=== PATIENT | male | born 1965 | race Caucasian/White ===

== ENCOUNTER 2019-04-22 17:08 | Emergency (ER) | payer BC ==
--- NOTE | 2019-04-22 17:39 | ED ---
GI/ HPI - HPI Summary HPI Summary: Patient states history of blood in urine with significant size blood clots 2 days. History of BPH. States history of similar symptoms 1 week ago which self resolved after 2 days. Mild pain with urination. Denies trauma, fever, cough, sore throat, CP, SOB, N/V/V abdominal pain, change in urine, change in BM. Medical history is hypothyroid, Lyme disease. Patient does not have a urologist. Per patient's friend, patient drinks 30 beers a day for years. - History of Current Complaint Chief Complaint: EDUrogenitalProblems Time Seen by Provider: 04/22/19 17:33 Stated Complaint: URINATING BLOOD PER PT Hx Obtained From: Patient, Family/Narrow Gauge Operator Onset/Duration: Started Days Ago Timing: Constant Current Severity: None Pain Intensity: 0 Associated Signs and Symptoms: Positive: Hematuria Aggravating Factor(s): Nothing Alleviating Factor(s): Nothing - Allergy/Home Medications Allergies/Adverse Reactions: Allergies Allergy/AdvReac Type Severity Reaction Status Date / Time No Known Allergies Allergy Verified 04/22/19 17:28 Home Medications: Home Medications Gabapentin CAP(*) [Neurontin 100 mg CAP(*)] 1 - 3 tab PO TID PRN 04/22/19 [ History Confirmed 04/22/19] Lovastatin 20 mg PO BEDTIME 04/22/19 [History Confirmed 04/22/19] PMH/Surg Hx/FS Hx/Imm Hx Endocrine/Hematology History: Reports: Hx Thyroid Disease Denies: Hx Diabetes Cardiovascular History: Denies: Hx Hypertension Respiratory History: Denies: Hx Asthma, Hx Chronic Obstructive Pulmonary Disease (COPD) GI History: Denies: Hx Ulcer History: Denies: Hx Dialysis Sensory History: Denies: Hx Eye Prosthesis Opthamlomology History: Denies: Hx Legally Blind EENT History: Denies: Hx Deafness Neurological History: Denies: Hx Dementia - Surgical History Surgery Procedure, Year, and Place: EYE SURGERIES- REATTACHED MUSCLES Infectious Disease History: No Infectious Disease History: Denies: Hx Hepatitis, Hx Human Immunodeficiency Virus (HIV), History Other Infectious Disease, Traveled Outside the [place] in Last 30 Days - Family History Known Family History: Positive: Non-Contributory - Social History Alcohol Use: Daily Substance Use Type: Reports: None Smoking Status (MU): Heavy Every Day Tobacco Smoker Type: Cigarettes Amount Used/How Often: 3/4 ppd Review of Systems Constitutional: Negative Eyes: Negative ENT: Negative Cardiovascular: Negative Respiratory: Negative Gastrointestinal: Negative Positive: hematuria Musculoskeletal: Negative Skin: Negative Neurological: Negative Psychological: Normal All Other Systems Reviewed And Are Negative: Yes Physical Exam Triage Information Reviewed: Yes Vital Signs On Initial Exam: Initial Vitals Temp Pulse Resp BP Pulse Ox 99.4 F 90 18 138/94 98 04/22/19 17:22 04/22/19 17:22 04/22/19 17:22 04/22/19 17:22 04/22/19 17:22 Vital Signs Reviewed: Yes Appearance: Positive: Well-Appearing Skin: Positive: Warm Head/Face: Positive: Normal Head/Face Inspection Eyes: Positive: Normal Neck: Positive: Supple Respiratory/Lung Sounds: Positive: Clear to Auscultation Cardiovascular: Positive: Normal Abdomen Description: Positive: Nontender Musculoskeletal: Positive: Normal Neurological: Positive: Normal Psychiatric: Positive: Normal AVPU Assessment: Alert - [place] Coma Scale Best Eye Response: 4 - Spontaneous Best Motor Response: 6 - Obeys Commands Best Verbal Response: 5 - Oriented Coma Scale Total: 15 Procedures - Sedation Patient Received Moderate/Deep Sedation with Procedure: No Diagnostics - Vital Signs Vital Signs Temp Pulse Resp BP Pulse Ox 04/22/19 17:22 99.4 F 90 18 138/94 98 - Laboratory Result Diagrams: 04/22/19 17:46 04/22/19 17:46 Lab Statement: Any lab studies that have been ordered have been reviewed, and results considered in the medical decision making process. GIGU Course/Dx - Course Course Of Treatment: Patient states history of blood in urine with significant size blood clots 2 days. History of BPH. States history of similar symptoms 1 week ago which self resolved after 2 days. Mild pain with urination. Denies trauma, fever, cough, sore throat, CP, SOB, N/V/V abdominal pain, change in urine, change in BM. Medical history is hypothyroid, Lyme disease. Patient does not have a urologist. Per patient's friend, patient drinks 30 beers a day for years. WBC 11.6. Hemoglobin 13. UA RBCs 3+. Urine looks like grape juice. Patient brought in large size clots that he passed while urinating. Vital signs within normal limits. WBC 11.6. Hemoglobin 13. Urine RBC 3+. Labs otherwise unremarkable. CAT scan of abdomen and pelvis with IV contrast only positive for large amount of intermediate attenuation blood in the urinary bladder. This could obscure bladder mass currently. There is abnormal wall thickening with some areas of apparent enhancing nodularity of the proximal left ureter and moderate infiltration in the surrounding fat, which appears to be the source of the blood. Parents is suspicious for transitional cell carcinoma. Mild left hydronephrosis. 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 No occlusion. No other acute disease seen. Patient able to urinate. Attempted to irrigate bladder with a catheter. Catheter was not able to be advanced past enlarged prostate. 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 Discussed patient with urologist at [facility] who stated patient could be discharged and follow-up with urology tomorrow. - Diagnoses Provider Diagnoses: Hematuria Discharge ED - Sign-Out/Discharge Documenting (check all that apply): Patient Departure - Discharge Plan Condition: Stable Disposition: HOME Patient Education Materials: Hematuria (ED) Referrals: Keshia Valero MD [Primary Care Provider] - Jorge Malik MD [Medical Doctor] - Additional Instructions: Called clinic of urology Dr. Malik early tomorrow morning to arrange a follow- up appointment for bleeding while urinating. Return to the ED for any new or worsening symptoms. - Billing Disposition and Condition Condition: STABLE Disposition: Home - Attestation Statements Provider Attestation: I agree w MATEO documentation as above, briefly this is a 53 y/o male w new onset hematuria. No e/o obstruction. CT concerning for bladder/ureteral cancer. Unable to place moss for irrigation. Will f/u w urology. Maura Redman MD
[2019-04-22 17:52] LABS: ABS Basophils 0.1 10^3/ul (0-0.2); ABS Eosinophils 0.2 10^3/ul (0-0.6); ABS Lymphocytes 2.4 10^3/ul (1.0-4.8); ABS Monocytes 0.7 10^3/ul (0-0.8); ABS Neutrophils 8.1 10^3/ul (1.5-7.7); Hematocrit 36 % (42-52); Lymphocyte % 20.9 %; Mean Corpuscular HGB Conc 36 g/dL (31-36); Mean Corpuscular Hemoglobin 34 pg (27-31); Mean Corpuscular Volume 94 fL (80-94); Mean Platelet Volume 8.5 fL (7.4-10.4); Platelet Count 253 10^3/uL (150-450); Red Blood Count 3.87 10^6 /uL (4.18-5.48); Red Cell Distribution Width 13 % (10-15); White Blood Count 11.6 10^3/uL (3.5-10.8)
[2019-04-22 18:04] LABS: INR 0.99 (0.82-1.09)
[2019-04-22 18:10] LABS: Albumin 4.2 g/dL (3.2-5.2); Albumin/Globulin Ratio 1.6 (1-3); BUN/Creatinine Ratio 13.5 (8-20); C Reactive Protein 3.73 mg/L (<8.01); Calcium 9.1 mg/dL (8.6-10.3); EGFR African American 133.4 (>60); EGFR Non-African American 110.2 (>60); Globulin 2.7 g/dL (2-4); Potassium 3.7 mmol/L (3.5-5.0); Total Bilirubin 0.4 mg/dL (0.2-1.0); Total Protein 6.9 g/dL (6.4-8.9)
[2019-04-22 18:25] LABS: Urine Red Blood Cell 3+(>10/hpf) (Absent); Urine Squamous Epithelial Cell Present (Absent); Urine White Blood Cell Trace(0-5/hpf) (Absent)
[2019-04-22 18:26] LABS: Urine Color Red
[2019-04-22 18:28] LABS: Urine Appearance Cloudy
[2019-04-22] MEDS ORDERED: Iohexol 300* (CONTRAST) 10 ML SDV IV ONE (19:19)
[2019-04-22] MEDS ORDERED: Lidocaine 2% JELLY* 10 ML JELLY TOPICAL ONE (21:02)
[2019-04-22 23:03] VITALS: BP 128/96
== END 2019-04-22 22:55 | disposition home or self-care (01) ==
LOC: ED 17:08
DX: R31.9 Hematuria, unspecified (principal); F17.210 Nicotine dependence, cigarettes, uncomplicated; E03.9 Hypothyroidism, unspecified; Z79.899 Other long term (current) drug therapy
CPT/HCPCS: 36415; 74177; 80053; 81003; 85025; 85610; 86140; 87086; 99283; A9270-GY; Q9967

== ENCOUNTER 2020-07-10 16:20 | Inpatient (IN) ==
[2020-07-10] MEDS ORDERED: Heparin - STEMI 5,000 UNITS/ML 1 ml VIAL IV ONE (16:33)
[2020-07-10] MEDS ORDERED: Heparin 1,000 UNIT/ML 10 ml (10,000 UNITS) CATHLAB/DIALYSIS ONE (16:38)
[2020-07-10] MEDS ORDERED: VERAPAMIL 2.5 MG/ML 2 ML VIAL ** 5 mg/2 ml ONE (16:38)
[2020-07-10] MEDS ORDERED: Lidocaine 1% VIAL 10 MG/ML VIAL ONE (16:38)
[2020-07-10] MEDS ORDERED: nitroGLYCERIN DRIP 25,000 MCG/250 ML BTL ONE (16:38)
[2020-07-10] MEDS ORDERED: Heparin 2 UNITS/ML 1000 mls 2,000 ML IV ONE (16:38)
[2020-07-10] MEDS ORDERED: Iohexol 350 (CONTRAST) 200 ML MDV IV ONE (16:39)
[2020-07-10 16:40] LABS: ABS Basophils 0.1 10^3/ul (0-0.2); ABS Lymphocytes 1.7 10^3/ul (1.0-4.8); ABS Monocytes 0.8 10^3/ul (0-0.8); ABS Neutrophils 13.8 10^3/ul (1.5-7.7); Eosinophil % 0.2 %; Hematocrit 40 % (42-52); Hemoglobin 13.6 g/dL (14.0-18.0); Lymphocyte % 10.3 %; Mean Corpuscular HGB Conc 34 g/dL (31-36); Mean Corpuscular Hemoglobin 31 pg (27-31); Mean Corpuscular Volume 90 fL (80-94); Mean Platelet Volume 8.7 fL (7.4-10.4); Platelet Count 317 10^3/uL (150-450); Red Blood Count 4.42 10^6 /uL (4.18-5.48); Red Cell Distribution Width 14 % (10-15); White Blood Count 16.3 10^3/uL (3.5-10.8)
[2020-07-10 16:58] LABS: ALT 41 U/L (7-52); AST 40 U/L (13-39); Albumin 3.8 g/dL (3.2-5.2); Albumin/Globulin Ratio 1.4 (1-3); Alkaline Phosphatase 105 U/L (34-104); Anion Gap 12 mmol/L (2-11); BUN/Creatinine Ratio 6.8 (8-20); Blood Urea Nitrogen 5 mg/dL (6-24); CO2 Carbon Dioxide 20 mmol/L (22-32); Calcium 8.5 mg/dL (8.6-10.3); Chloride 98 mmol/L (101-111); Creatine Kinase 167 U/L (10-223); EGFR Non-African American 111.6 (>60); Globulin 2.8 g/dL (2-4); Glucose 119 mg/dL (70-100); LDL Cholesterol Direct 91 mg/dL; Potassium 3.8 mmol/L (3.5-5.0); Sodium 130 mmol/L (135-145); Total Protein 6.6 g/dL (6.4-8.9)
[2020-07-10 16:59] LABS: Activated Partial Thrombo Time 29.3 seconds (26.0-38.0); INR 1.03 (0.82-1.09)
[2020-07-10] MEDS ORDERED: Metoprolol Tartrate 5 mg VIAL 5 ml VIAL (1 mg/ml) ONE (17:01)
[2020-07-10] MEDS ORDERED: Metoprolol Tartrate 5 mg VIAL 5 ml VIAL (1 mg/ml) IV ONE (17:02)
[2020-07-10 17:03] LABS: Myoglobin 311.9 ng/mL (17.4-105.7)
[2020-07-10 17:04] LABS: CKMB ng/mL 13.8 ng/mL (0.6-6.3)
[2020-07-10 17:06] LABS: Troponin I 0.41 ng/mL (<0.03)
[2020-07-10] MEDS ORDERED: fentaNYL 100 mcg/2 ml 50 MCG/ML VIAL ONE (17:39)
[2020-07-10] MEDS ORDERED: Midazolam 5 mg/5 ml VIAL 1 mg/ml 5 ml VIAL (5 mg) ONE (17:39)
[2020-07-10] MEDS ORDERED: Bivalirudin 250 MG VIAL ONE (17:50)
[2020-07-10] MEDS ORDERED: Ondansetron 4 mg VIAL 2 MG/ML 2 ml VIAL IV PRN (19:08)
[2020-07-10] MEDS ORDERED: hydrALAZINE 20 mg/ml 1 ML Vial IV IV SLOW PU ONE (19:10)
[2020-07-10] MEDS ORDERED: Furosemide 20 mg/2 ml IV VIAL IV ONE (19:14)
[2020-07-10] MEDS ORDERED: hydrALAZINE 20 mg/ml 1 ML Vial IV ONE (19:14)
[2020-07-10] MEDS ORDERED: NS 0.9% 1000 ml BAG 1,000 ML IV SCH (19:15)
[2020-07-10] MEDS ORDERED: Metoprolol Tartrate 5 mg VIAL 5 ml VIAL (1 mg/ml) IV PRN (19:28)
[2020-07-10] MEDS ORDERED: Furosemide 20 mg/2 ml IV VIAL ONE (19:49)
[2020-07-10 20:34] LABS: Troponin I 13.32 ng/mL (<0.03)
[2020-07-11 01:45] LABS: Troponin I 46.63 ng/mL (<0.03)
[2020-07-11 05:10] LABS: ABS Basophils 0.1 10^3/ul (0-0.2); ABS Eosinophils 0.1 10^3/ul (0-0.6); ABS Monocytes 1.3 10^3/ul (0-0.8); ABS Neutrophils 13.8 10^3/ul (1.5-7.7); Eosinophil % 0.6 %; Hematocrit 38 % (42-52); Lymphocyte % 11.7 %; Mean Corpuscular HGB Conc 34 g/dL (31-36); Mean Corpuscular Hemoglobin 31 pg (27-31); Mean Corpuscular Volume 89 fL (80-94); Mean Platelet Volume 8.9 fL (7.4-10.4); Platelet Count 303 10^3/uL (150-450); Red Blood Count 4.27 10^6 /uL (4.18-5.48); Red Cell Distribution Width 14 % (10-15); White Blood Count 17.3 10^3/uL (3.5-10.8)
[2020-07-11 05:16] LABS: Anion Gap 9 mmol/L (2-11); BUN/Creatinine Ratio 9.4 (8-20); Blood Urea Nitrogen 6 mg/dL (6-24); CO2 Carbon Dioxide 23 mmol/L (22-32); Calcium 8.8 mg/dL (8.6-10.3); Chloride 100 mmol/L (101-111); Cholesterol 136 mg/dL; EGFR African American 157.1 (>60); EGFR Non-African American 129.8 (>60); Glucose 124 mg/dL (70-100); HDL Cholesterol 29.4 mg/dL; LDL Cholesterol 50 mg/dL; Potassium 3.6 mmol/L (3.5-5.0); Sodium 132 mmol/L (135-145); Triglycerides 282 mg/dL
[2020-07-11] MEDS ORDERED: Potassium Chlor 20 meq TAB.ER PO ONE ×2 (07:07→08:35)
[2020-07-11 07:35] LABS: Magnesium 1.9 mg/dL (1.9-2.7)
[2020-07-11 07:40] LABS: Troponin I 45.61 ng/mL (<0.03)
[2020-07-11] MEDS ORDERED: Pneumococcal Vac 23-Polyvalent IM ONE (09:00)
[2020-07-12 06:57] LABS: ABS Basophils 0.1 10^3/ul (0-0.2); ABS Eosinophils 0.2 10^3/ul (0-0.6); ABS Lymphocytes 2.4 10^3/ul (1.0-4.8); ABS Monocytes 1.1 10^3/ul (0-0.8); ABS Neutrophils 10.2 10^3/ul (1.5-7.7); Eosinophil % 1.6 %; Hematocrit 36 % (42-52); Hemoglobin 12.2 g/dL (14.0-18.0); Lymphocyte % 17.1 %; Mean Corpuscular HGB Conc 34 g/dL (31-36); Mean Corpuscular Hemoglobin 31 pg (27-31); Mean Corpuscular Volume 91 fL (80-94); Mean Platelet Volume 9.4 fL (7.4-10.4); Platelet Count 246 10^3/uL (150-450); Red Blood Count 3.94 10^6 /uL (4.18-5.48); Red Cell Distribution Width 14 % (10-15); White Blood Count 13.9 10^3/uL (3.5-10.8)
[2020-07-12 07:16] LABS: BUN/Creatinine Ratio 10.4 (8-20); Calcium 8.6 mg/dL (8.6-10.3); EGFR Non-African American 123.2 (>60); Magnesium 2.1 mg/dL (1.9-2.7)
[2020-07-12] MEDS ORDERED: Thiamine 100 MG/ML 2 ml VIAL (200 mg) IM ONE (07:38)
[2020-07-12] MEDS ORDERED: Multivitamins/Minerals TAB PO SCH (09:00)
[2020-07-12] MEDS ORDERED: Perflutren Lipid Microsphere 3 ML VIAL ONE (11:53)
[2020-07-12 14:07] LABS: TSH Ultra Thyroid Stim Horm 9.47 mcIU/mL (0.34-5.60)
[2020-07-12] MEDS ORDERED: Nicotine GUM 4MG FRUIT FLAVOR PO PRN (14:18)
[2020-07-12 15:58] VITALS: BP 120/92
[2020-07-12] MEDS ORDERED: Enoxaparin 100 MG/ML SYR SUBCUT ONE (16:20)
== END 2020-07-12 17:15 | disposition home or self-care (01) | DRG 174 ==
LOC: ED 16:20 → CHICATH 16:41 → ICU 19:31 → MEDTELE 07-11 17:54
PROVIDERS: ATTEND Internal Medicine

== ENCOUNTER 2020-11-09 21:09 | Inpatient (IN) ==
[2020-11-09 22:25] LABS: Hematocrit 22 % (42-52); Hemoglobin 7.5 g/dL (14.0-18.0); Mean Corpuscular HGB Conc 34 g/dL (31-36); Mean Corpuscular Hemoglobin 31 pg (27-31); Mean Corpuscular Volume 90 fL (80-94); Mean Platelet Volume 7.8 fL (7.4-10.4); Platelet Count 354 10^3/uL (150-450); Red Blood Count 2.45 10^6 /uL (4.18-5.48); Red Cell Distribution Width 34 % (10-15); White Blood Count 8.2 10^3/uL (3.5-10.8)
[2020-11-09 22:35] LABS: INR 1.01 (0.86-1.15)
[2020-11-09 22:42] LABS: ALT 13 U/L (7-52); AST 17 U/L (13-39); Albumin 3.8 g/dL (3.2-5.2); Albumin/Globulin Ratio 1.6 (1-3); Alkaline Phosphatase 59 U/L (35-149); Anion Gap 11 mmol/L (2-11); Blood Urea Nitrogen 18 mg/dL (6-24); C Reactive Protein 8.43 mg/L (<8.01); CO2 Carbon Dioxide 20 mmol/L (22-32); Calcium 7.6 mg/dL (8.6-10.3); Chloride 98 mmol/L (101-111); EGFR African American 61.1 (>60); EGFR Non-African American 50.5 (>60); Globulin 2.4 g/dL (2-4); Glucose 124 mg/dL (70-100); Potassium 4.1 mmol/L (3.5-5.0); Sodium 129 mmol/L (135-145); Total Protein 6.2 g/dL (6.4-8.9)
[2020-11-09 22:46] LABS: Troponin I 0.03 ng/mL (<0.03)
[2020-11-09 22:47] LABS: Anisocytosis 3+; CKMB ng/mL 1.9 ng/mL (0.6-6.3)
[2020-11-09 22:48] LABS: Basophilic Stippling 1+; Polychromasia 1+
[2020-11-09 22:49] LABS: Macrocytosis 2+; Microcytosis 1+
[2020-11-09 22:50] LABS: ABS Lymphocytes 0.2 10^3/ul (1.0-4.8); ABS Monocytes 0.2 10^3/ul (0-0.8); ABS Neutrophils 7.8 10^3/ul (1.5-7.7); Eosinophil % 0.1 %
[2020-11-09] MEDS ORDERED: cefTRIAXone 1 gm/50 mL NS BAG 1 GM/50 ML BAG IV ONE (23:16)
[2020-11-09] MEDS ORDERED: Furosemide 20 mg/2 ml IV VIAL IV SLOW PU ONE (23:18)
[2020-11-09 23:57] LABS: Urine Appearance Cloudy; Urine Bilirubin Negative (Negative); Urine Blood 2+ (Negative); Urine Color Yellow; Urine Glucose Negative (Negative); Urine Ketones Negative (Negative); Urine Nitrite Negative (Negative); Urine Protein 1+(30 mg/dL) (Negative); Urine Specific Gravity 1.014 (1.002-1.030); Urine Urobilinogen Negative (Negative)
[2020-11-10 00:08] LABS: Urine Bacteria Absent (Absent); Urine Granular Casts Present (Absent); Urine Red Blood Cell 3+(>10/hpf) (Absent); Urine White Blood Cell 1+(6-10/hpf) (Absent)
[2020-11-10 00:08] LABS: PCO2 Arterial 38 mmHg (35-45)
[2020-11-10 00:11] LABS: PO2 Arterial 43 mmHg (80-100)
[2020-11-10] MEDS ORDERED: Azithromycin 500 mg/250 ml NS 500 MG/250 ML BAG IVPB ONE (00:15)
[2020-11-10] MEDS ORDERED: Succinylcholine 200 mg VIAL 20 mg/ml 10 ml VIAL (200 mg) ONE (00:32)
[2020-11-10] MEDS ORDERED: Rocuronium 50 mg VIAL 10 mg/ml 5 ml VIAL (50 mg) ONE (00:32)
[2020-11-10] MEDS ORDERED: Etomidate 40 mg/20 ml (2 MG/ML) 20 ml VIAL (40 mg) ONE (00:41)
[2020-11-10] MEDS ORDERED: Propofol 10 mg/ml 100 ML BTL 100 ML ONE (00:45)
[2020-11-10] MEDS ORDERED: Albuterol/Ipratropium NEB.SOL (2.5/0.5 MG) 3 ML NEB.SOLN ONE (00:51)
[2020-11-10] MEDS ORDERED: Albuterol/Ipratropium NEB.SOL (2.5/0.5 MG) 3 ML NEB.SOLN INH PRN (01:10)
[2020-11-10] MEDS ORDERED: Piperacillin/Tazobac ADVAN 3.375 GM in NS 0.9% 100 ml BAG 100 ML IV ONE (01:15)
[2020-11-10 01:50] LABS: Hematocrit 25 % (42-52); Hemoglobin 8.4 g/dL (14.0-18.0); Mean Corpuscular HGB Conc 33 g/dL (31-36); Mean Corpuscular Hemoglobin 31 pg (27-31); Mean Corpuscular Volume 93 fL (80-94); Platelet Count 411 10^3/uL (150-450); Red Cell Distribution Width 35 % (10-15); White Blood Count 10.8 10^3/uL (3.5-10.8)
[2020-11-10] MEDS ORDERED: Iodixanol (CONTRAST) 320 MG/ML 100 ML SDV IV ONE (01:53)
[2020-11-10 01:54] LABS: ABS Lymphocytes 0.3 10^3/ul (1.0-4.8); ABS Monocytes 0.2 10^3/ul (0-0.8); ABS Neutrophils 10.2 10^3/ul (1.5-7.7); Eosinophil % 0.1 %
[2020-11-10] MEDS ORDERED: Propofol 10 mg/ml 100 ML BTL 100 ML IV SCH ×3 (02:00→03:41)
[2020-11-10] MEDS ORDERED: Zosyn per Pharmacy NOTE FOLLOW UP SCH (02:00)
[2020-11-10] MEDS ORDERED: niCARdipine 0.1MG/ML IVPREMIX 20 MG/200 ML BAG IV SCH (02:00)
[2020-11-10 02:05] LABS: Albumin 3.8 g/dL (3.2-5.2); Anion Gap 13 mmol/L (2-11); CO2 Carbon Dioxide 16 mmol/L (22-32); Calcium 7.4 mg/dL (8.6-10.3); Chloride 99 mmol/L (101-111); Magnesium 1.8 mg/dL (1.9-2.7); Potassium 4.4 mmol/L (3.5-5.0); Sodium 128 mmol/L (135-145)
[2020-11-10 02:11] LABS: ALT 13 U/L (7-52); AST 20 U/L (13-39); Albumin/Globulin Ratio 1.5 (1-3); Alkaline Phosphatase 65 U/L (35-149); Blood Urea Nitrogen 21 mg/dL (6-24); EGFR African American 59.7 (>60); EGFR Non-African American 49.3 (>60); Globulin 2.6 g/dL (2-4); Glucose 191 mg/dL (70-100); Phosphorus 6.3 mg/dL (2.5-5.0); Total Protein 6.4 g/dL (6.4-8.9)
[2020-11-10] MEDS ORDERED: Magnesium Sulfate 2 gm BAG 2 GM/50 ML BAG IVPB ONE (02:14)
[2020-11-10 02:18] LABS: Troponin I 0.04 ng/mL (<0.03)
[2020-11-10 02:46] LABS: PCO2 Arterial 30 mmHg (35-45); PO2 Arterial 302 mmHg (80-100)
[2020-11-10] MEDS ORDERED: fentaNYL 100 mcg/2 ml 50 MCG/ML VIAL IV SLOW PU PRN ×2 (03:36→05:43)
[2020-11-10 03:39] LABS: TSH Ultra Thyroid Stim Horm 7.41 mcIU/mL (0.34-5.60)
[2020-11-10] MEDS: Linezolid 600 MG IVPREMIX(*) 600 MG/300 ML BAG IVPB SCH ×2 (04:58→15:36)
[2020-11-10] MEDS: Chlorhexidine MOUTHWASH 0.12% 15 ML UDC TOPICAL SCH ×3 (05:27→12:38)
[2020-11-10 05:54] LABS: Hematocrit 23 % (42-52); Hemoglobin 7.5 g/dL (14.0-18.0); Mean Corpuscular HGB Conc 33 g/dL (31-36); Mean Corpuscular Hemoglobin 31 pg (27-31); Mean Corpuscular Volume 92 fL (80-94); Mean Platelet Volume 7.7 fL (7.4-10.4); Platelet Count 322 10^3/uL (150-450); Red Blood Count 2.46 10^6 /uL (4.18-5.48); Red Cell Distribution Width 35 % (10-15); White Blood Count 8.9 10^3/uL (3.5-10.8)
[2020-11-10 05:59] LABS: ABS Basophils 0.1 10^3/ul (0-0.2); ABS Lymphocytes 0.2 10^3/ul (1.0-4.8); ABS Monocytes 0.3 10^3/ul (0-0.8); ABS Neutrophils 8.4 10^3/ul (1.5-7.7); Lymphocyte % 1.7 %
[2020-11-10 06:26] LABS: Anion Gap 9 mmol/L (2-11); Blood Urea Nitrogen 23 mg/dL (6-24); CO2 Carbon Dioxide 20 mmol/L (22-32); Calcium 7.3 mg/dL (8.6-10.3); Chloride 98 mmol/L (101-111); EGFR African American 56.2 (>60); EGFR Non-African American 46.4 (>60); Glucose 159 mg/dL (70-100); Potassium 4.6 mmol/L (3.5-5.0); Sodium 127 mmol/L (135-145)
[2020-11-10 06:31] LABS: PCO2 Arterial 29 mmHg (35-45); PO2 Arterial 97 mmHg (80-100)
[2020-11-10 06:59] LABS: Troponin I 0.09 ng/mL (<0.03)
[2020-11-10] MEDS: Heparin 5000 UNITS/ML 1 mL VIAL SUBCUT SCH ×2 (09:00→20:45)
[2020-11-10] MEDS: Multivitamins/Minerals TAB PO SCH (09:00)
[2020-11-10] MEDS: ZOSYN 3.375 GM Q8H per EXTENDED INFUSION IV SCH ×3 (09:00→23:14)
[2020-11-10] MEDS: Pantoprazole VIAL 40 MG VIAL IV SCH (09:00)
[2020-11-10] MEDS ORDERED: Perflutren Lipid Microsphere 3 ML VIAL ONE (09:26)
[2020-11-10 11:11] LABS: Troponin I 0.11 ng/mL (<0.03)
[2020-11-10] MEDS ORDERED: Furosemide 100 mg/10 ml IV VIAL IV ONE (16:01)
[2020-11-10 16:50] LABS: Hematocrit 22 % (42-52); Hemoglobin 7.3 g/dL (14.0-18.0); Mean Corpuscular HGB Conc 32 g/dL (31-36); Mean Corpuscular Hemoglobin 30 pg (27-31); Mean Corpuscular Volume 92 fL (80-94); Mean Platelet Volume 7.8 fL (7.4-10.4); Platelet Count 314 10^3/uL (150-450); Red Blood Count 2.44 10^6 /uL (4.18-5.48); Red Cell Distribution Width 34 % (10-15); White Blood Count 6.9 10^3/uL (3.5-10.8)
[2020-11-11] MEDS: Linezolid 600 MG IVPREMIX(*) 600 MG/300 ML BAG IVPB SCH (02:58)
[2020-11-11 04:21] LABS: Hematocrit 21 % (42-52); Hemoglobin 6.9 g/dL (14.0-18.0); Mean Corpuscular HGB Conc 34 g/dL (31-36); Mean Corpuscular Hemoglobin 30 pg (27-31); Mean Corpuscular Volume 90 fL (80-94); Mean Platelet Volume 7.6 fL (7.4-10.4); Platelet Count 328 10^3/uL (150-450); Red Blood Count 2.28 10^6 /uL (4.18-5.48); Red Cell Distribution Width 34 % (10-15); White Blood Count 6.3 10^3/uL (3.5-10.8)
[2020-11-11 04:36] LABS: Calcium 7.4 mg/dL (8.6-10.3); EGFR African American 56.6 (>60); EGFR Non-African American 46.8 (>60); Magnesium 2.1 mg/dL (1.9-2.7); Phosphorus 4.2 mg/dL (2.5-5.0); Potassium 3.9 mmol/L (3.5-5.0)
[2020-11-11] MEDS ORDERED: Potassium Chlor 20 meq TAB.ER PO ONE (04:39)
[2020-11-11] MEDS: ZOSYN 3.375 GM Q8H per EXTENDED INFUSION IV SCH (07:28)
[2020-11-11] MEDS: Pantoprazole VIAL 40 MG VIAL IV SCH (08:52)
[2020-11-11] MEDS: Heparin 5000 UNITS/ML 1 mL VIAL SUBCUT SCH ×2 (08:53→21:18)
[2020-11-11] MEDS: Multivitamins/Minerals TAB PO SCH (08:53)
[2020-11-11] MEDS ORDERED: Furosemide 40 mg/4 ml IV VIAL IV ONE (08:54)
[2020-11-11] MEDS: Amoxicillin/Clavul 875/125 TAB (Augmentin 875 tab) PO SCH ×2 (10:19→21:33)
[2020-11-11 10:46] LABS: HDL Cholesterol 33.3 mg/dL
[2020-11-12 09:31] LABS: Hematocrit 27 % (42-52); Hemoglobin 9.4 g/dL (14.0-18.0); Mean Corpuscular HGB Conc 34 g/dL (31-36); Mean Corpuscular Hemoglobin 31 pg (27-31); Mean Corpuscular Volume 90 fL (80-94); Mean Platelet Volume 7.8 fL (7.4-10.4); Platelet Count 385 10^3/uL (150-450); Red Blood Count 3.03 10^6 /uL (4.18-5.48); Red Cell Distribution Width 31 % (10-15)
[2020-11-12] MEDS: Heparin 5000 UNITS/ML 1 mL VIAL SUBCUT SCH (09:32)
[2020-11-12] MEDS: Pantoprazole VIAL 40 MG VIAL IV SCH (09:32)
[2020-11-12] MEDS: Amoxicillin/Clavul 875/125 TAB (Augmentin 875 tab) PO SCH (09:32)
[2020-11-12] MEDS: Multivitamins/Minerals TAB PO SCH (09:32)
[2020-11-12 09:52] LABS: Albumin 3.8 g/dL (3.2-5.2); Albumin/Globulin Ratio 1.3 (1-3); Calcium 8.7 mg/dL (8.6-10.3); EGFR African American 64.7 (>60); EGFR Non-African American 53.5 (>60); Globulin 2.9 g/dL (2-4); Magnesium 1.7 mg/dL (1.9-2.7); Phosphorus 3.1 mg/dL (2.5-5.0); Potassium 4.1 mmol/L (3.5-5.0); Total Bilirubin 0.5 mg/dL (0.2-1.0); Total Protein 6.7 g/dL (6.4-8.9)
[2020-11-12 11:01] LABS: ABS Eosinophils 0.1 10^3/ul (0-0.6); ABS Lymphocytes 0.6 10^3/ul (1.0-4.8); ABS Neutrophils 4.2 10^3/ul (1.5-7.7); Eosinophil % 2.8 %; Lymphocyte % 11.4 %
[2020-11-12] MEDS ORDERED: COVID-19 VACCINE, MRNA(MODERNA)/PF 100 MCG/0.5 ML IM ONE (16:00)
[2020-11-12 18:15] VITALS: BP 118/60
== END 2020-11-12 18:50 | disposition home or self-care (01) | DRG 133 ==
LOC: ED 21:09 → ICU 11-10 01:07 → SUATTDRO 11-10 01:07 → ICU 11-10 02:36 → MEDTELE 11-11 16:09
PROVIDERS: ADMIT Student in an Organized Health Care Education/Training Program; ATTEND Internal Medicine

== ENCOUNTER 2023-11-09 15:12 | Inpatient (IN) ==
[2023-11-09 15:50] LABS: ABS Basophils 0.2 10^3/uL (0.0-0.1); ABS Eosinophils 0.1 10^3/uL (0.0-0.5); ABS Lymphocytes 0.7 10^3/uL (1.0-4.8); ABS Neutrophils 12.6 10^3/uL (1.5-7.6); ABS Nucleated RBC 0.01 10^3/ul; Eosinophil % 0.9 %; Hematocrit 16.5 % (38-53); Hemoglobin 5.4 g/dL (13.2-16.3); Lymphocyte % 4.6 %; Mean Corpuscular Hemoglobin 24.5 pg (27-33); Mean Corpuscular Hgb Conc 32.8 g/dL (31-36); Mean Corpuscular Volume 74.5 fL (80-97); Mean Platelet Volume 7.4 fL (7.5-11.2); Nucleated Red Blood Cells % 0.1 %/100WBC (0.0-0.8); Platelet Count 745 10^3/uL (150-450); Red Blood Count 2.21 10^6/uL (4.06-5.63); Red Cell Distribution Width 17.5 % (12-17); White Blood Count 14.6 10^3/uL (3.6-10.2)
[2023-11-09 16:03] LABS: High Sens Troponin Baseline 18 pg/mL (<20)
[2023-11-09 16:20] LABS: Acanthocytes 2+; Anisocytosis 1+
[2023-11-09 16:21] LABS: Large Platelets Present
[2023-11-09 16:51] LABS: ALT 10 U/L (7-52); Albumin 3.2 g/dL (3.2-5.2); Albumin/Globulin Ratio 1.1 (1-3); Alkaline Phosphatase 95 U/L (35-149); Blood Urea Nitrogen 14 mg/dL (6-24); CO2 Carbon Dioxide 20 mmol/L (22-32); Calcium 8.2 mg/dL (8.6-10.3); Chloride 91 mmol/L (101-111); Creatinine, Serum 1.43 mg/dL (0.67-1.17); Globulin 2.9 g/dL (2-4); Glucose 90 mg/dL (70-100); Sodium 123 mmol/L (135-145); Total Bilirubin 0.3 mg/dL (0.2-1.0); Total Protein 6.1 g/dL (6.4-8.9); eGFR CKD-EPI 56.8 (>60)
[2023-11-09 16:52] LABS: Anion Gap 12 mmol/L (2-16)
[2023-11-09 17:03] LABS: Urine Appearance Extra Turbid; Urine Bilirubin Negative (Negative); Urine Blood 3+ (Negative); Urine Glucose Negative (Negative); Urine Ketones Negative (Negative); Urine Nitrite Negative (Negative); Urine Protein 2+ (>=100 mg/dL) (Negative); Urine Specific Gravity 1.005 (1.002-1.030); Urine Urobilinogen Negative (Negative); Urine pH 6.5 (5.0-8.0)
[2023-11-09 17:28] LABS: Urine Bacteria 3+ /HPF (Absent); Urine Red Blood Cell 3+(>10/hpf) /HPF (0-Trace); Urine White Blood Cell 3+(>20/hpf) /HPF (0-Trace)
[2023-11-09 17:30] LABS: Urine Color Light-Yellow
[2023-11-09 18:02] LABS: Potassium Redraw 4.2 mmol/L (3.5-5.0)
[2023-11-09] MEDS: Iodixanol (CONTRAST) 320 MG/ML 100 ML SDV IV ONE (18:17)
[2023-11-09] MEDS: cefTRIAXone 1 gm/50 mL D5W 1 GM/50 ML BAG IV ONE (18:53)
[2023-11-09 18:58] LABS: PCO2 Arterial 25 mmHg (35-45); PO2 Arterial 91 mmHg (80-100)
[2023-11-09] MEDS: Furosemide 40 mg/4 ml IV VIAL IV ONE ×2 (19:06→22:14)
[2023-11-09 19:20] LABS: ABS Eosinophils 0.2 10^3/uL (0.0-0.5); ABS Lymphocytes 0.6 10^3/uL (1.0-4.8); ABS Monocytes 1.2 10^3/uL (0.0-1.1); ABS Neutrophils 15.5 10^3/uL (1.5-7.6); ABS Nucleated RBC 0.01 10^3/ul; Hematocrit 17.1 % (38-53); Hemoglobin 5.5 g/dL (13.2-16.3); Lymphocyte % 3.6 %; Mean Corpuscular Hemoglobin 23.8 pg (27-33); Mean Corpuscular Volume 74.4 fL (80-97); Mean Platelet Volume 7.1 fL (7.5-11.2); Platelet Count 685 10^3/uL (150-450); Red Cell Distribution Width 17.9 % (12-17); White Blood Count 17.5 10^3/uL (3.6-10.2)
[2023-11-09 19:43] LABS: Urine Appearance Extra Turbid; Urine Bilirubin Negative (Negative); Urine Blood 3+ (Negative); Urine Glucose Negative (Negative); Urine Ketones Negative (Negative); Urine Nitrite Negative (Negative); Urine Protein 2+ (>=100 mg/dL) (Negative); Urine Specific Gravity 1.026 (1.002-1.030); Urine Urobilinogen Negative (Negative); Urine pH 6.5 (5.0-8.0)
[2023-11-09 19:54] LABS: Urine Bacteria 1+ /HPF (Absent); Urine Red Blood Cell 3+(>10/hpf) /HPF (0-Trace); Urine White Blood Cell 3+(>20/hpf) /HPF (0-Trace)
[2023-11-09 19:55] LABS: Urine Color Light-Yellow
[2023-11-09 21:45] LABS: Ferritin 24.6 ng/mL (24-336)
[2023-11-09 22:06] LABS: % Iron Saturation 6 % (15-55); .Transferrin 232 mg/dL (203-362); Iron 21 ug/dL (50-212); Total Iron Binding Capacity 325 mcg/dL (250-450); Unsaturated Iron Binding 304 ug/dL
[2023-11-09] MEDS: Furosemide 40 mg/4 ml IV VIAL IV SLOW PU ONE (22:40)
[2023-11-09] MEDS: Morphine 2 MG/ML SYRINGE IV ONE (23:07)
[2023-11-10 04:32] LABS: Hematocrit 21.1 % (38-53); Hemoglobin 6.7 g/dL (13.2-16.3); Mean Corpuscular Hemoglobin 24.7 pg (27-33); Mean Corpuscular Hgb Conc 31.9 g/dL (31-36); Mean Corpuscular Volume 77.5 fL (80-97); Mean Platelet Volume 7.1 fL (7.5-11.2); Platelet Count 594 10^3/uL (150-450); Red Blood Count 2.72 10^6/uL (4.06-5.63); Red Cell Distribution Width 19.9 % (12-17); White Blood Count 24.8 10^3/uL (3.6-10.2)
[2023-11-10 05:28] LABS: ABS Lymphocytes 0.3 10^3/uL (1.0-4.8); ABS Neutrophils 23.4 10^3/uL (1.5-7.6); ABS Nucleated RBC 0.01 10^3/ul; Lymphocyte % 1.4 %
[2023-11-10 05:31] LABS: Calcium 7.9 mg/dL (8.6-10.3); Creatinine, Serum 1.81 mg/dL (0.67-1.17); Magnesium 1.8 mg/dL (1.9-2.7); Potassium 5.9 mmol/L (3.5-5.0); eGFR CKD-EPI 42.8 (>60)
[2023-11-10] MEDS: Magnesium Sulfate 2 gm BAG 2 GM/50 ML BAG IVPB ONE (06:01)
[2023-11-10] MEDS ORDERED: Sulfur Hexaflouride MICROSPHR 25 MG VIAL ONE (09:36)
[2023-11-10] MEDS: Sulfur Hexaflouride MICROSPHR 25 MG VIAL IV ONE (09:44)
[2023-11-10] MEDS: Bumetanide IV 0.25 MG/ML 4 ml VIAL (1 mg) IV SLOW PU ONE (09:59)
[2023-11-10] MEDS: cefTRIAXone 1 gm/50 mL D5W 1 GM/50 ML BAG IV SCH (10:38)
[2023-11-10] MEDS: Morphine 2 MG/ML SYRINGE IV ONE (10:38)
[2023-11-10 12:23] LABS: Phosphorus 5.9 mg/dL (2.5-5.0)
[2023-11-10 12:45] LABS: Osmolality Serum 260 mOsm/kg (275-295)
[2023-11-10 13:19] LABS: Hematocrit 25.1 % (38-53); Hemoglobin 8.3 g/dL (13.2-16.3); Mean Corpuscular Hemoglobin 26.7 pg (27-33); Mean Corpuscular Hgb Conc 33.2 g/dL (31-36); Mean Corpuscular Volume 80.4 fL (80-97); Mean Platelet Volume 7.5 fL (7.5-11.2); Platelet Count 565 10^3/uL (150-450); Red Blood Count 3.12 10^6/uL (4.06-5.63); Red Cell Distribution Width 21.1 % (12-17); White Blood Count 26.8 10^3/uL (3.6-10.2)
[2023-11-10 13:21] LABS: ABS Lymphocytes 0.5 10^3/uL (1.0-4.8); ABS Monocytes 1.2 10^3/uL (0.0-1.1); ABS Neutrophils 25.1 10^3/uL (1.5-7.6); Eosinophil % 0.1 %; Lymphocyte % 1.7 %
[2023-11-10 13:33] LABS: Urine Osmo 241 mOsm/kg (150-1150)
[2023-11-10] MEDS: Vancomycin 1,250 MG in NS 0.9% 250 ml 250 ML IVPB ONE (16:21)
[2023-11-10 17:08] LABS: Calcium 8.2 mg/dL (8.6-10.3); Creatinine, Serum 2.08 mg/dL (0.67-1.17); eGFR CKD-EPI 36.2 (>60)
[2023-11-10] MEDS: Ferric Gluconate IV 250 MG in NS 0.9% 250 ml 200 ML IVPB SCH (17:32)
[2023-11-10] MEDS ORDERED: cefTRIAXone 1 gm/50 mL D5W 1 GM/50 ML BAG IV SCH (18:00)
[2023-11-11 05:41] LABS: Hematocrit 24.4 % (38-53); Hemoglobin 7.7 g/dL (13.2-16.3); Mean Corpuscular Hemoglobin 25.1 pg (27-33); Mean Corpuscular Hgb Conc 31.8 g/dL (31-36); Mean Corpuscular Volume 79.1 fL (80-97); Mean Platelet Volume 7.5 fL (7.5-11.2); Platelet Count 501 10^3/uL (150-450); Red Blood Count 3.08 10^6/uL (4.06-5.63); Red Cell Distribution Width 21.1 % (12-17); White Blood Count 23.6 10^3/uL (3.6-10.2)
[2023-11-11 05:46] LABS: ABS Basophils 0.1 10^3/uL (0.0-0.1); ABS Lymphocytes 0.6 10^3/uL (1.0-4.8); ABS Monocytes 0.8 10^3/uL (0.0-1.1); ABS Nucleated RBC 0.05 10^3/ul; Eosinophil % 0.1 %; Lymphocyte % 2.7 %; Nucleated Red Blood Cells % 0.2 %/100WBC (0.0-0.8)
[2023-11-11 06:32] LABS: Creatinine, Serum 1.96 mg/dL (0.67-1.17); Magnesium 2.2 mg/dL (1.9-2.7); Phosphorus 5.2 mg/dL (2.5-5.0); Potassium 4.5 mmol/L (3.5-5.0); eGFR CKD-EPI 38.9 (>60)
[2023-11-11 08:24] LABS: C Reactive Protein 92.77 mg/L (<8.01)
[2023-11-11 08:38] LABS: TSH Ultra Thyroid Stim Horm 17.18 mcIU/mL (0.34-5.60)
[2023-11-11] MEDS: Bumetanide IV 0.25 MG/ML 4 ml VIAL (1 mg) IV SLOW PU ONE ×2 (10:01→20:16)
[2023-11-11 16:08] LABS: Calcium 8.6 mg/dL (8.6-10.3); Creatinine, Serum 1.9 mg/dL (0.67-1.17); Potassium 4.4 mmol/L (3.5-5.0); eGFR CKD-EPI 40.4 (>60)
[2023-11-12] MEDS: Bumetanide IV 0.25 MG/ML 4 ml VIAL (1 mg) IV SLOW PU ONE ×2 (00:16→09:49)
[2023-11-12 08:24] LABS: ABS Basophils 0.1 10^3/uL (0.0-0.1); ABS Eosinophils 0.2 10^3/uL (0.0-0.5); ABS Lymphocytes 0.5 10^3/uL (1.0-4.8); ABS Monocytes 0.9 10^3/uL (0.0-1.1); ABS Neutrophils 17.5 10^3/uL (1.5-7.6); ABS Nucleated RBC 0.05 10^3/ul; Eosinophil % 1.1 %; Hematocrit 26.2 % (38-53); Hemoglobin 8.6 g/dL (13.2-16.3); Lymphocyte % 2.6 %; Mean Corpuscular Hemoglobin 26.2 pg (27-33); Mean Corpuscular Hgb Conc 32.7 g/dL (31-36); Mean Corpuscular Volume 80.2 fL (80-97); Mean Platelet Volume 7.4 fL (7.5-11.2); Nucleated Red Blood Cells % 0.3 %/100WBC (0.0-0.8); Platelet Count 599 10^3/uL (150-450); Red Blood Count 3.26 10^6/uL (4.06-5.63); Red Cell Distribution Width 21.1 % (12-17); White Blood Count 19.3 10^3/uL (3.6-10.2)
[2023-11-12 09:02] LABS: Calcium 8.9 mg/dL (8.6-10.3); Creatinine, Serum 1.79 mg/dL (0.67-1.17); Magnesium 1.8 mg/dL (1.9-2.7); Phosphorus 4.8 mg/dL (2.5-5.0); eGFR CKD-EPI 43.4 (>60)
[2023-11-12] MEDS: Magnesium Sulfate 2 gm BAG 2 GM/50 ML BAG IVPB ONE (10:01)
[2023-11-13 05:56] LABS: ABS Basophils 0.1 10^3/uL (0.0-0.1); ABS Eosinophils 0.4 10^3/uL (0.0-0.5); ABS Lymphocytes 0.7 10^3/uL (1.0-4.8); ABS Monocytes 0.8 10^3/uL (0.0-1.1); ABS Neutrophils 11.6 10^3/uL (1.5-7.6); ABS Nucleated RBC 0.03 10^3/ul; Hematocrit 22.6 % (38-53); Hemoglobin 7.3 g/dL (13.2-16.3); Lymphocyte % 5.3 %; Mean Corpuscular Hemoglobin 26.1 pg (27-33); Mean Corpuscular Hgb Conc 32.3 g/dL (31-36); Mean Corpuscular Volume 80.9 fL (80-97); Mean Platelet Volume 7.7 fL (7.5-11.2); Nucleated Red Blood Cells % 0.2 %/100WBC (0.0-0.8); Platelet Count 533 10^3/uL (150-450); Red Blood Count 2.79 10^6/uL (4.06-5.63); Red Cell Distribution Width 21.2 % (12-17); White Blood Count 13.7 10^3/uL (3.6-10.2)
[2023-11-13 06:33] LABS: Calcium 8.1 mg/dL (8.6-10.3); Creatinine, Serum 1.36 mg/dL (0.67-1.17); Magnesium 1.8 mg/dL (1.9-2.7); Phosphorus 4.9 mg/dL (2.5-5.0); Potassium 3.9 mmol/L (3.5-5.0); eGFR CKD-EPI 60.3 (>60)
[2023-11-13] MEDS: cefTRIAXone 1 gm/50 mL D5W 1 GM/50 ML BAG IV SCH (08:54)
[2023-11-13] MEDS: Magnesium Sulfate 2 gm BAG 2 GM/50 ML BAG IVPB ONE (10:03)
[2023-11-14 05:21] LABS: ABS Basophils 0.2 10^3/uL (0.0-0.1); ABS Eosinophils 0.6 10^3/uL (0.0-0.5); ABS Lymphocytes 0.6 10^3/uL (1.0-4.8); ABS Neutrophils 10.9 10^3/uL (1.5-7.6); ABS Nucleated RBC 0.01 10^3/ul; Eosinophil % 4.6 %; Hematocrit 22.5 % (38-53); Hemoglobin 7.7 g/dL (13.2-16.3); Lymphocyte % 4.8 %; Mean Corpuscular Hemoglobin 27.5 pg (27-33); Mean Corpuscular Hgb Conc 34.1 g/dL (31-36); Mean Corpuscular Volume 80.7 fL (80-97); Mean Platelet Volume 7.3 fL (7.5-11.2); Platelet Count 528 10^3/uL (150-450); Red Blood Count 2.79 10^6/uL (4.06-5.63); Red Cell Distribution Width 21.3 % (12-17); White Blood Count 13.4 10^3/uL (3.6-10.2)
[2023-11-14 05:50] LABS: Calcium 8.3 mg/dL (8.6-10.3); Creatinine, Serum 1.16 mg/dL (0.67-1.17); Potassium 4.1 mmol/L (3.5-5.0)
[2023-11-14 10:55] VITALS: BP 98/69
== END 2023-11-14 13:17 | disposition home or self-care (01) | DRG 291 ==
LOC: ED 15:12 → EDHOLD 15:12 → ICU 20:53 → SUATTDRO 11-11 09:44 → MEDTELE 11-12 19:39
PROVIDERS: ADMIT Internal Medicine; ATTEND Internal Medicine

== ENCOUNTER 2024-01-01 16:05 | Observation (INO) ==
[2024-01-01 17:03] LABS: INR 0.98 (0.85-1.14)
[2024-01-01] MEDS: Lidocaine 2% JELLY 6 ML Topical TOPICAL ONE (17:52)
[2024-01-01 18:00] LABS: Albumin 3.5 g/dL (3.2-5.2); Albumin/Globulin Ratio 1.6 (1-3); Calcium 8.3 mg/dL (8.6-10.3); Creatinine, Serum 1.52 mg/dL (0.67-1.17); Globulin 2.2 g/dL (2-4); Potassium 4.4 mmol/L (3.5-5.0); Total Bilirubin 0.3 mg/dL (0.2-1.0); Total Protein 5.7 g/dL (6.4-8.9); eGFR CKD-EPI 52.5 (>60)
[2024-01-01 18:09] LABS: Urine Appearance Turbid; Urine Color Dark-Red
[2024-01-01 18:10] LABS: Urine Specific Gravity 1.032 (1.002-1.030)
[2024-01-01 19:32] LABS: ABS Basophils 0.1 10^3/uL (0.0-0.1); ABS Eosinophils 0.2 10^3/uL (0.0-0.5); ABS Lymphocytes 0.8 10^3/uL (1.0-4.8); ABS Monocytes 1.1 10^3/uL (0.0-1.1); ABS Neutrophils 7.6 10^3/uL (1.5-7.6); Anisocytosis 1+; Burr Cells 1+; Eosinophil % 1.7 %; Hematocrit 27.1 % (38-53); Hemoglobin 9.2 g/dL (13.2-16.3); Lymphocyte % 8.3 %; Mean Corpuscular Hemoglobin 31.1 pg (27-33); Mean Corpuscular Hgb Conc 33.9 g/dL (31-36); Mean Corpuscular Volume 91.5 fL (80-97); Mean Platelet Volume 8.2 fL (7.5-11.2); Platelet Count 290 10^3/uL (150-450); Red Blood Count 2.97 10^6/uL (4.06-5.63); Red Cell Distribution Width 21.4 % (12-17); Tear Drop Cells 1+; White Blood Count 9.7 10^3/uL (3.6-10.2)
[2024-01-01 20:24] LABS: Urine Bacteria Absent /HPF (Absent); Urine Red Blood Cell 3+(>10/hpf) /HPF (0-Trace); Urine White Blood Cell 3+(>20/hpf) /HPF (0-Trace)
[2024-01-01 21:01] LABS: Magnesium 1.7 mg/dL (1.9-2.7)
[2024-01-01] MEDS: cefTRIAXone 1 gm/50 mL D5W 1 GM/50 ML BAG IV SCH (21:16)
[2024-01-01] MEDS: Magnesium Sulfate 2 gm BAG 2 GM/50 ML BAG IVPB ONE (21:50)
[2024-01-01] MEDS: Nicotine PATCH 14 MG/24 HR PATCH TRANSDERM SCH (23:07)
[2024-01-01] MEDS: Magnesium Sulfate IV 1GM/100ML 1 GM/100 ML BAG IV ONE (23:17)
[2024-01-02] MEDS: Ferric Gluconate IV 250 MG in NS 0.9% 250 ml 200 ML IVPB SCH (00:21)
[2024-01-02] MEDS: Lactated Ringers 1000 ml BAG 500 ML IV ONE (02:32)
[2024-01-02] MEDS: HYDROcodone/ACETAMIN 5/325 mg TAB PO PRN (03:01)
[2024-01-02] MEDS: Lactated Ringers 1000 ml BAG 1,000 ML IV SCH (04:10)
[2024-01-02 06:09] LABS: Urine Appearance Clear; Urine Bilirubin Negative (Negative); Urine Blood 3+ (Negative); Urine Color Colorless; Urine Glucose Negative (Negative); Urine Ketones Negative (Negative); Urine Nitrite Negative (Negative); Urine Protein Negative (Negative); Urine Specific Gravity 1.005 (1.002-1.030); Urine Urobilinogen Negative (Negative)
[2024-01-02 06:09] LABS: Hematocrit 24.9 % (38-53); Hemoglobin 8.4 g/dL (13.2-16.3); Mean Corpuscular Hemoglobin 30.8 pg (27-33); Mean Corpuscular Hgb Conc 33.6 g/dL (31-36); Mean Corpuscular Volume 91.7 fL (80-97); Mean Platelet Volume 8.3 fL (7.5-11.2); Platelet Count 284 10^3/uL (150-450); Red Blood Count 2.72 10^6/uL (4.06-5.63); Red Cell Distribution Width 21.6 % (12-17); White Blood Count 11.4 10^3/uL (3.6-10.2)
[2024-01-02 06:13] LABS: ABS Basophils 0.1 10^3/uL (0.0-0.1); ABS Eosinophils 0.2 10^3/uL (0.0-0.5); ABS Lymphocytes 0.8 10^3/uL (1.0-4.8); ABS Neutrophils 9.3 10^3/uL (1.5-7.6); Eosinophil % 1.9 %; Lymphocyte % 6.9 %
[2024-01-02 06:41] LABS: Calcium 8.5 mg/dL (8.6-10.3); Creatinine, Serum 1.98 mg/dL (0.67-1.17); Magnesium 2.5 mg/dL (1.9-2.7); Potassium 4.3 mmol/L (3.5-5.0); eGFR CKD-EPI 38.2 (>60)
[2024-01-02 07:03] LABS: Urine Bacteria Absent /HPF (Absent); Urine Red Blood Cell 3+(>10/hpf) /HPF (0-Trace); Urine White Blood Cell 1+(6-10/hpf) /HPF (0-Trace)
[2024-01-02] MEDS: Vitamin THERAPEUTIC TAB PO SCH (08:27)
[2024-01-02 09:34] LABS: C Reactive Protein 7.45 mg/L (<8.01)
[2024-01-02] MEDS ORDERED: Ondansetron 4 mg VIAL 2 MG/ML 2 ml VIAL IV PRN (12:06)
[2024-01-02] MEDS ORDERED: Naloxone 0.4 mg VIAL 0.4 mg/ml 1 ml VIAL IV PRN (12:06)
[2024-01-02] MEDS ORDERED: Dextran 70/Hypromellose Tears Eye Drops 15 ml BTL (for Artificials Tears) LEFT EYE PRN (14:41)
[2024-01-03 06:00] LABS: Calcium 8.6 mg/dL (8.6-10.3); Creatinine, Serum 1.52 mg/dL (0.67-1.17); Potassium 4.4 mmol/L (3.5-5.0); eGFR CKD-EPI 52.5 (>60)
[2024-01-03 07:26] LABS: ABS Basophils 0.1 10^3/uL (0.0-0.1); ABS Eosinophils 0.4 10^3/uL (0.0-0.5); ABS Monocytes 0.8 10^3/uL (0.0-1.1); ABS Neutrophils 7.9 10^3/uL (1.5-7.6); Anisocytosis 1+; Eosinophil % 3.5 %; Hematocrit 23.6 % (38-53); Hemoglobin 8.1 g/dL (13.2-16.3); Lymphocyte % 9.8 %; Mean Corpuscular Hemoglobin 31.6 pg (27-33); Mean Corpuscular Hgb Conc 34.2 g/dL (31-36); Mean Corpuscular Volume 92.2 fL (80-97); Mean Platelet Volume 8.7 fL (7.5-11.2); Platelet Count 284 10^3/uL (150-450); Red Blood Count 2.56 10^6/uL (4.06-5.63); Red Cell Distribution Width 20.6 % (12-17); White Blood Count 10.1 10^3/uL (3.6-10.2)
[2024-01-03] MEDS: NICOTINE 14 MG/24 HR TRANSDERM SCH (10:05)
[2024-01-03] MEDS ORDERED: Midazolam 2 mg/2 ml VIAL 1 mg/ml 2 ml VIAL (2 mg) ONE (11:41)
[2024-01-03] MEDS ORDERED: fentaNYL 100 mcg/2 ml 50 MCG/ML VIAL ONE (12:17)
[2024-01-03] MEDS ORDERED: Propofol 10 MG/ML 20 ML BTL ONE (12:48)
[2024-01-03] MEDS ORDERED: Lidocaine 2% PF 5 ML VIAL ONE (12:48)
[2024-01-03] MEDS ORDERED: Ondansetron 4 mg VIAL 2 MG/ML 2 ml VIAL ONE (12:57)
[2024-01-03] MEDS ORDERED: Dexamethasone IV 4 MG/ML VIAL 1 ml VIAL ONE (12:57)
[2024-01-03] MEDS ORDERED: fentaNYL 250 mcg/5 ml 50 MCG/ML 5 ml VIAL (250 MCG) ONE (14:36)
[2024-01-03] MEDS: fentaNYL 100 mcg/2 ml 50 MCG/ML VIAL IV PRN (14:39)
[2024-01-03] MEDS: Lactated Ringers 1000 ml BAG 1,000 ML IV SCH (16:35)
[2024-01-03] MEDS: Buffered Lidocaine 1% SYRIN 1 ml INTRADERM ONE (16:35)
[2024-01-03 16:54] LABS: Hematocrit 25.6 % (38-53); Hemoglobin 8.4 g/dL (13.2-16.3)
[2024-01-03 22:03] VITALS: BP 115/82
[2024-01-03] MEDS: Morphine 2 MG/ML SYRINGE IV ONE (22:03)
== END 2024-01-03 22:00 | disposition short-term general hospital (02) ==
LOC: EDHOLD 16:05 → ED 16:05 → SSU 01-02 09:46
PROVIDERS: ADMIT Internal Medicine; ATTEND Internal Medicine

== ENCOUNTER 2024-02-01 01:53 | Inpatient (IN) ==
[2024-02-01 02:18] LABS: Hematocrit 30.6 % (38-53); Hemoglobin 10.1 g/dL (13.2-16.3); Mean Corpuscular Hemoglobin 29.9 pg (27-33); Mean Corpuscular Hgb Conc 32.8 g/dL (31-36); Mean Corpuscular Volume 91.2 fL (80-97); Mean Platelet Volume 8.2 fL (7.5-11.2); Platelet Count 647 10^3/uL (150-450); Red Blood Count 3.36 10^6/uL (4.06-5.63); Red Cell Distribution Width 15.5 % (12-17); White Blood Count 15.2 10^3/uL (3.6-10.2)
[2024-02-01 02:33] LABS: INR 0.99 (0.85-1.14)
[2024-02-01 02:39] LABS: Albumin 3.2 g/dL (3.2-5.2); Albumin/Globulin Ratio 1.3 (1-3); Alcohol, S < 13 mg/dL (<13); Calcium 8.9 mg/dL (8.6-10.3); Creatinine, Serum 1.69 mg/dL (0.67-1.17); Globulin 2.5 g/dL (2-4); Magnesium 1.9 mg/dL (1.9-2.7); Potassium 4.5 mmol/L (3.5-5.0); Total Bilirubin 0.2 mg/dL (0.2-1.0); Total Protein 5.7 g/dL (6.4-8.9); eGFR CKD-EPI 46.2 (>60)
[2024-02-01] MEDS: Furosemide 40 mg/4 ml IV VIAL IV SLOW PU ONE (02:47)
[2024-02-01 03:44] LABS: High Sensitivity Troponin 1 Hr 1712 pg/mL (<20)
[2024-02-01 03:55] LABS: ABS Basophils 0.1 10^3/uL (0.0-0.1); ABS Eosinophils 0.7 10^3/uL (0.0-0.5); ABS Monocytes 1.1 10^3/uL (0.0-1.1); ABS Neutrophils 11.3 10^3/uL (1.5-7.6); Eosinophil % 4.5 %; Lymphocyte % 13.3 %
[2024-02-01 04:33] LABS: Activated Partial Thrombo Time 35.2 seconds (26.0-38.0)
[2024-02-01 05:07] LABS: ABS Basophils 0.2 10^3/uL (0.0-0.1); ABS Eosinophils 0.2 10^3/uL (0.0-0.5); ABS Lymphocytes 0.6 10^3/uL (1.0-4.8); ABS Monocytes 1.1 10^3/uL (0.0-1.1); ABS Neutrophils 19.1 10^3/uL (1.5-7.6); Hematocrit 26.3 % (38-53); Hemoglobin 8.6 g/dL (13.2-16.3); Lymphocyte % 2.7 %; Mean Corpuscular Hemoglobin 29.5 pg (27-33); Mean Corpuscular Hgb Conc 32.9 g/dL (31-36); Mean Corpuscular Volume 89.8 fL (80-97); Platelet Count 523 10^3/uL (150-450); Red Blood Count 2.92 10^6/uL (4.06-5.63); Red Cell Distribution Width 15.4 % (12-17); White Blood Count 21.1 10^3/uL (3.6-10.2)
[2024-02-01] MEDS: Heparin 5000 UNITS/ML 1 mL VIAL IV SCH (05:42)
[2024-02-01] MEDS: Heparin DRIP 25,000 UNITS BAG 25,000 UNITS/250 ML BAG IV SCH (05:43)
[2024-02-01 06:00] LABS: High Sensitivity Troponin 3 Hr 6002 pg/mL (<20)
[2024-02-01 06:01] LABS: Calcium 8.7 mg/dL (8.6-10.3); Creatinine, Serum 1.68 mg/dL (0.67-1.17); Magnesium 1.9 mg/dL (1.9-2.7); Potassium 4.9 mmol/L (3.5-5.0); eGFR CKD-EPI 46.5 (>60)
[2024-02-01 06:13] LABS: Free T3 2.73 pg/mL (2.5-3.9)
[2024-02-01 06:19] LABS: Folate > 20.00 ng/mL (5.90-24.80)
[2024-02-01 06:20] LABS: Vitamin B12 229 pg/mL (180-914)
[2024-02-01] MEDS: Magnesium Sulfate 2 gm BAG 2 GM/50 ML BAG IVPB ONE (08:09)
[2024-02-01] MEDS: Aspirin EC 81 mg TAB.EC (enteric coated) PO SCH (11:09)
[2024-02-01 11:53] LABS: High Sensitivity Troponin 3 Hr 21980 pg/mL (<20)
[2024-02-01 12:30] LABS: Urine Appearance Cloudy; Urine Color Light-Red
[2024-02-01 12:31] LABS: Urine Bacteria Absent /HPF (Absent); Urine Bilirubin Negative (Negative); Urine Blood 3+ (Negative); Urine Glucose Negative (Negative); Urine Ketones Negative (Negative); Urine Nitrite Negative (Negative); Urine Protein 1+ (>=30 mg/dL) (Negative); Urine Red Blood Cell 3+(>10/hpf) /HPF (0-Trace); Urine Specific Gravity 1.006 (1.002-1.030); Urine Urobilinogen Negative (Negative); Urine White Blood Cell 3+(>20/hpf) /HPF (0-Trace)
[2024-02-01] MEDS: cefTRIAXone 1 gm/50 mL D5W 1 GM/50 ML BAG IV SCH (14:07)
[2024-02-01 18:07] LABS: High Sensitivity Troponin 3 Hr 22968 pg/mL (<20)
[2024-02-01] MEDS: fentaNYL 100 mcg/2 ml 50 MCG/ML VIAL IV SLOW PU ONE (19:37)
[2024-02-02 01:26] LABS: High Sensitivity Troponin 3 Hr 18039 pg/mL (<20)
[2024-02-02 04:33] LABS: ABS Basophils 0.1 10^3/uL (0.0-0.1); ABS Eosinophils 0.5 10^3/uL (0.0-0.5); ABS Lymphocytes 0.7 10^3/uL (1.0-4.8); ABS Monocytes 0.8 10^3/uL (0.0-1.1); ABS Neutrophils 14.7 10^3/uL (1.5-7.6); Eosinophil % 2.8 %; Hematocrit 23.4 % (38-53); Hemoglobin 7.7 g/dL (13.2-16.3); Lymphocyte % 4.4 %; Mean Corpuscular Hemoglobin 29.5 pg (27-33); Mean Corpuscular Hgb Conc 32.8 g/dL (31-36); Mean Corpuscular Volume 89.9 fL (80-97); Platelet Count 496 10^3/uL (150-450); Red Cell Distribution Width 15.5 % (12-17); White Blood Count 16.8 10^3/uL (3.6-10.2)
[2024-02-02 05:03] LABS: Calcium 7.8 mg/dL (8.6-10.3); Creatinine, Serum 1.89 mg/dL (0.67-1.17); Magnesium 1.8 mg/dL (1.9-2.7); eGFR CKD-EPI 40.4 (>60)
[2024-02-02] MEDS: Magnesium Sulfate 2 gm BAG 2 GM/50 ML BAG IVPB ONE (06:11)
[2024-02-02] MEDS: Sulfur Hexaflouride MICROSPHR 25 MG VIAL IV PRN (08:00)
[2024-02-02] MEDS: Polyethylene Glycol 3350 17 GM PACKET PO SCH (10:51)
[2024-02-02] MEDS: Senna TAB 8.6 mg TAB ONE (10:51)
[2024-02-02] MEDS: Senna TAB 8.6 mg TAB PO SCH (10:51)
[2024-02-02] MEDS: Polyethylene Glycol 3350 17 GM PACKET ONE (10:51)
[2024-02-02 11:59] LABS: Hematocrit 28.7 % (38-53); Hemoglobin 9.4 g/dL (13.2-16.3)
[2024-02-02] MEDS: Furosemide 40 mg/4 ml IV VIAL IV ONE (12:43)
[2024-02-02] MEDS: Morphine 4 MG/ML VIAL (1 ml) IV PRN (18:05)
[2024-02-02] MEDS: Morphine 2 MG/ML SYRINGE IV ONE ×3 (19:21→21:15)
[2024-02-02] MEDS: Lidocaine 4% GEL 10 GM TUBE TOPICAL ONE (19:54)
[2024-02-02] MEDS: Alteplase (CATHFLO) 2 MG VIAL IV ONE (21:15)
[2024-02-02] MEDS: Morphine 2 MG/ML SYRINGE ONE (23:40)
[2024-02-03] MEDS: Alteplase (CATHFLO) 2 MG VIAL IV ONE ×2 (00:53→12:44)
[2024-02-03] MEDS: Furosemide 40 mg/4 ml IV VIAL IV ONE (01:52)
[2024-02-03 02:04] LABS: Venous Bicarbonate HCO3 17.6 mmol/L (24-28)
[2024-02-03] MEDS: Furosemide 40 mg/4 ml IV VIAL ONE ×2 (02:25→10:35)
[2024-02-03 03:58] LABS: Potassium 5.1 mmol/L (3.5-5.0)
[2024-02-03 03:59] LABS: Phosphorus 4.8 mg/dL (2.5-5.0)
[2024-02-03 04:00] LABS: Calcium 8.3 mg/dL (8.6-10.3); Creatinine, Serum 3.91 mg/dL (0.67-1.17); eGFR CKD-EPI 16.9 (>60)
[2024-02-03 04:42] LABS: Hematocrit 23.3 % (38-53); Hemoglobin 7.6 g/dL (13.2-16.3); Mean Corpuscular Hemoglobin 29.2 pg (27-33); Mean Corpuscular Hgb Conc 32.6 g/dL (31-36); Mean Corpuscular Volume 89.6 fL (80-97); Mean Platelet Volume 8.7 fL (7.5-11.2); Platelet Count 482 10^3/uL (150-450); White Blood Count 29.8 10^3/uL (3.6-10.2)
[2024-02-03 04:49] LABS: High Sensitivity Troponin 1 Hr 7177 pg/mL (<20)
[2024-02-03] MEDS: Norepinephrine 4 MG/250mL D5W 4,000 MCG/250 ML BAG IV SCH (05:15)
[2024-02-03] MEDS: Norepinephrine 4 MG/250mL D5W 4,000 MCG/250 ML BAG IV ONE (05:22)
[2024-02-03 05:38] LABS: Calcium 8.6 mg/dL (8.6-10.3); Creatinine, Serum 4.04 mg/dL (0.67-1.17); Magnesium 2.2 mg/dL (1.9-2.7); Potassium 6.2 mmol/L (3.5-5.0); eGFR CKD-EPI 16.2 (>60)
[2024-02-03] MEDS ORDERED: Dextrose 50% Syringe 50 ml 25 GM/50 ML SYRINGE IV PUSH PRN (05:52)
[2024-02-03 06:21] LABS: ABS Basophils 0.2 10^3/uL (0.0-0.1); ABS Lymphocytes 0.7 10^3/uL (1.0-4.8); ABS Monocytes 1.3 10^3/uL (0.0-1.1); ABS Neutrophils 27.6 10^3/uL (1.5-7.6); Eosinophil % 0.1 %; Lymphocyte % 2.2 %
[2024-02-03 07:00] LABS: Albumin 3.2 g/dL (3.2-5.2); Albumin/Globulin Ratio 1.3 (1-3); Globulin 2.4 g/dL (2-4); Total Bilirubin 0.3 mg/dL (0.2-1.0); Total Protein 5.6 g/dL (6.4-8.9)
[2024-02-03] MEDS: Phenylephrine 40 mcg/mL 10mL (400mcg) SYRINGE ONE (07:26)
[2024-02-03] MEDS: DOBUTamine 2000 MCG/ML IVPREMX 0 MG/0 ML BAG IV ONE (07:26)
[2024-02-03] MEDS: Rocuronium 50 mg VIAL 10 mg/ml 5 ml VIAL (50 mg) ONE ×3 (07:26→10:36)
[2024-02-03] MEDS: Succinylcholine 200 mg VIAL 20 mg/ml 10 ml VIAL (200 mg) ONE ×2 (07:27→10:36)
[2024-02-03] MEDS: SODIUM ZIRCONIUM CYCLOSILICATE 10 GM PACKET PO ONE (07:32)
[2024-02-03] MEDS: Ondansetron 4 mg VIAL 2 MG/ML 2 ml VIAL IV PRN (07:40)
[2024-02-03] MEDS: Morphine 2 MG/ML SYRINGE ONE (08:00)
[2024-02-03] MEDS: Morphine 2 MG/ML SYRINGE IV ONE (08:00)
[2024-02-03] MEDS: Sodium Polystyrene ORAL.SUSP 15 GM/60 ML BTL PO ONE (08:04)
[2024-02-03] MEDS: Dextrose 50% Syringe 50 ml 25 GM/50 ML SYRINGE IV PUSH ONE (08:09)
[2024-02-03] MEDS: CALCIUM GLUCONATE 1GM/50ML NS 1 GM/50 ML BAG IV ONE (08:21)
[2024-02-03 08:42] LABS: PCO2 Arterial 32 mmHg (35-45); PO2 Arterial 129 mmHg (80-100)
[2024-02-03 09:15] LABS: High Sensitivity Troponin 3 Hr 6793 pg/mL (<20)
[2024-02-03 09:25] LABS: Calcium 7.9 mg/dL (8.6-10.3); Creatinine, Serum 4.07 mg/dL (0.67-1.17); Potassium 5.5 mmol/L (3.5-5.0); eGFR CKD-EPI 16.1 (>60)
[2024-02-03] MEDS ORDERED: Zosyn per Pharmacy NOTE FOLLOW UP SCH (10:00)
[2024-02-03] MEDS ORDERED: Midazolam 10 mg/10 ml VIAL 1 mg/ml 10 ml VIAL (10 mg) ONE (10:18)
[2024-02-03] MEDS ORDERED: Rocuronium 50 mg VIAL 10 mg/ml 5 ml VIAL (50 mg) ONE (10:18)
[2024-02-03] MEDS ORDERED: Etomidate 40 mg/20 ml (2 MG/ML) 20 ml VIAL (40 mg) ONE (10:18)
[2024-02-03] MEDS: Propofol 10 mg/ml 100 ML BTL 1,000 MG/100 ML BTL IV SCH (10:30)
[2024-02-03] MEDS: Piperacillin/Tazobac 3.375 BAG 3.375 GM/100 ML BAG IV ONE (10:39)
[2024-02-03 11:49] VITALS: BP 140/70
[2024-02-03] MEDS: fentaNYL 100 mcg/2 ml 50 MCG/ML VIAL ONE (12:44)
[2024-02-03] MEDS: Propofol 10 mg/ml 100 ML BTL 1,000 MG/100 ML BTL ONE (12:47)
[2024-02-03] MEDS ORDERED: cefTRIAXone 1 gm/50 mL D5W 1 GM/50 ML BAG IV SCH (14:00)
[2024-02-03] MEDS ORDERED: Chlorhexidine MOUTHWASH 0.12% 15 ML UDC TOPICAL SCH (14:00)
[2024-02-03] MEDS ORDERED: ZOSYN 3.375 GM Q12H per EXTENDED INFUSION IV SCH (15:00)
[2024-02-03 16:14] LABS: Body Fluid Total Nucleated 142055 /mcL
[2024-02-03 16:18] LABS: Body Fluid Total Nucleated 7571 /mcL
[2024-02-03 16:19] LABS: Body Fluid Appearance Bloody; Body Fluid Color Red
[2024-02-03 16:20] LABS: Body Fluid Appearance Bloody; Body Fluid Color Pink
[2024-02-03 16:51] LABS: Body Fluid Total Cells Counted 200
[2024-02-03 18:07] LABS: Body Fluid Mono 1 %; Body Fluid Total Cells Counted 200; Body Fluid Variant Lymph 1 %
== END 2024-02-03 14:03 | disposition short-term general hospital (02) | DRG 280 ==
LOC: ED 01:53 → EDHOLD 02:56 → ICU 03:41
PROVIDERS: ADMIT Internal Medicine; ATTEND Internal Medicine

== ENCOUNTER 2024-02-14 02:47 | Inpatient (IN) ==
[2024-02-14] MEDS: nitroGLYCERIN DRIP 25,000 MCG/250 ML BTL IV SCH (03:05)
[2024-02-14 03:08] LABS: Hemoglobin 9.9 g/dL (13.2-16.3); Mean Corpuscular Hemoglobin 29.8 pg (27-33); Mean Corpuscular Hgb Conc 31.8 g/dL (31-36); Mean Corpuscular Volume 93.6 fL (80-97); Mean Platelet Volume 8.2 fL (7.5-11.2); Platelet Count 710 10^3/uL (150-450); Red Blood Count 3.32 10^6/uL (4.06-5.63); Red Cell Distribution Width 16.2 % (12-17); White Blood Count 14.6 10^3/uL (3.6-10.2)
[2024-02-14 03:30] LABS: High Sens Troponin Baseline 19 pg/mL (<20)
[2024-02-14 04:03] LABS: ALT 16 U/L (7-52); AST 20 U/L (13-39); Albumin 3.7 g/dL (3.2-5.2); Albumin/Globulin Ratio 1.3 (1-3); Alkaline Phosphatase 88 U/L (35-149); Anion Gap 15 mmol/L (2-16); Blood Urea Nitrogen 29 mg/dL (6-24); C Reactive Protein 17.34 mg/L (<8.01); CO2 Carbon Dioxide 18 mmol/L (22-32); Calcium 8.3 mg/dL (8.6-10.3); Chloride 100 mmol/L (101-111); Creatinine, Serum 1.91 mg/dL (0.67-1.17); Globulin 2.8 g/dL (2-4); Glucose 318 mg/dL (70-100); Magnesium 1.7 mg/dL (1.9-2.7); Potassium 4.6 mmol/L (3.5-5.0); Sodium 133 mmol/L (135-145); Total Bilirubin 0.2 mg/dL (0.2-1.0); Total Protein 6.5 g/dL (6.4-8.9); eGFR CKD-EPI 39.9 (>60)
[2024-02-14 04:44] LABS: Alcohol, S < 13 mg/dL (<13)
[2024-02-14 04:49] LABS: ABS Basophils 0.2 10^3/uL (0.0-0.1); ABS Eosinophils 0.6 10^3/uL (0.0-0.5); ABS Monocytes 0.5 10^3/uL (0.0-1.1); ABS Neutrophils 10.3 10^3/uL (1.5-7.6); ABS Nucleated RBC 0.01 10^3/ul; Lymphocyte % 20.5 %
[2024-02-14 04:50] LABS: Hypochromasia 1+; Polychromasia 1+
[2024-02-14 05:00] LABS: TSH Ultra Thyroid Stim Horm 27.63 mcIU/mL (0.34-5.60)
[2024-02-14 05:26] LABS: High Sensitivity Troponin 1 Hr 51 pg/mL (<20)
[2024-02-14] MEDS: Furosemide 40 mg/4 ml IV VIAL IV SLOW PU ONE (05:42)
[2024-02-14 05:47] LABS: Free T4 0.98 ng/dL (0.61-1.12)
[2024-02-14] MEDS: Erythromycin OPTH OINT APPLIC OINT LEFT EYE SCH (10:47)
[2024-02-14] MEDS: Furosemide 40 mg/4 ml IV VIAL IV SLOW PU SCH (10:47)
[2024-02-14 11:50] LABS: Calcium 8.2 mg/dL (8.6-10.3); Creatinine, Serum 1.72 mg/dL (0.67-1.17); Magnesium 1.4 mg/dL (1.9-2.7); Potassium 4.4 mmol/L (3.5-5.0); eGFR CKD-EPI 45.2 (>60)
[2024-02-14] MEDS: Enoxaparin 40 MG/0.4 ML SYR SUBCUT SCH (20:10)
[2024-02-15] MEDS: Magnesium Sulfate 2 gm BAG 2 GM/50 ML BAG IVPB ONE (02:59)
[2024-02-15 05:17] LABS: ABS Basophils 0.2 10^3/uL (0.0-0.1); ABS Eosinophils 0.4 10^3/uL (0.0-0.5); ABS Lymphocytes 0.9 10^3/uL (1.0-4.8); ABS Monocytes 0.9 10^3/uL (0.0-1.1); ABS Neutrophils 11.2 10^3/uL (1.5-7.6); ABS Nucleated RBC 0.01 10^3/ul; Eosinophil % 3.1 %; Hematocrit 26.3 % (38-53); Hemoglobin 8.7 g/dL (13.2-16.3); Lymphocyte % 6.9 %; Mean Corpuscular Hemoglobin 30.3 pg (27-33); Mean Corpuscular Hgb Conc 33.1 g/dL (31-36); Mean Corpuscular Volume 91.6 fL (80-97); Mean Platelet Volume 8.3 fL (7.5-11.2); Platelet Count 495 10^3/uL (150-450); Red Blood Count 2.87 10^6/uL (4.06-5.63); White Blood Count 13.5 10^3/uL (3.6-10.2)
[2024-02-15 06:02] LABS: Creatinine, Serum 1.78 mg/dL (0.67-1.17); Magnesium 2.4 mg/dL (1.9-2.7); Potassium 3.6 mmol/L (3.5-5.0); eGFR CKD-EPI 43.4 (>60)
[2024-02-16 09:28] LABS: ABS Basophils 0.2 10^3/uL (0.0-0.1); ABS Eosinophils 0.5 10^3/uL (0.0-0.5); ABS Lymphocytes 1.3 10^3/uL (1.0-4.8); ABS Monocytes 1.1 10^3/uL (0.0-1.1); ABS Neutrophils 12.7 10^3/uL (1.5-7.6); Eosinophil % 3.4 %; Hematocrit 27.8 % (38-53); Hemoglobin 9.2 g/dL (13.2-16.3); Lymphocyte % 8.1 %; Mean Corpuscular Hemoglobin 30.1 pg (27-33); Mean Corpuscular Hgb Conc 33.1 g/dL (31-36); Mean Corpuscular Volume 90.7 fL (80-97); Platelet Count 566 10^3/uL (150-450); Red Blood Count 3.07 10^6/uL (4.06-5.63); Red Cell Distribution Width 15.6 % (12-17); White Blood Count 15.9 10^3/uL (3.6-10.2)
[2024-02-16 09:38] LABS: INR 1.02 (0.85-1.14)
[2024-02-16 09:39] LABS: Calcium 9.7 mg/dL (8.6-10.3); Creatinine, Serum 1.7 mg/dL (0.67-1.17); Magnesium 1.7 mg/dL (1.9-2.7); Potassium 4.3 mmol/L (3.5-5.0); eGFR CKD-EPI 45.9 (>60)
[2024-02-16] MEDS: Magnesium Sulfate 2 gm BAG 2 GM/50 ML BAG IVPB ONE (10:20)
[2024-02-16] MEDS: Polyethylene Glycol 3350 17 GM PACKET PO PRN (10:45)
[2024-02-16] MEDS: Magnesium Sulfate IV 1GM/100ML 1 GM/100 ML BAG IV ONE (13:23)
[2024-02-16] MEDS: Senna TAB 8.6 mg TAB PO PRN (15:35)
[2024-02-17 06:05] LABS: ABS Basophils 0.1 10^3/uL (0.0-0.1); ABS Eosinophils 0.3 10^3/uL (0.0-0.5); ABS Lymphocytes 1.1 10^3/uL (1.0-4.8); ABS Monocytes 1.1 10^3/uL (0.0-1.1); ABS Neutrophils 12.4 10^3/uL (1.5-7.6); Eosinophil % 2.2 %; Hematocrit 26.5 % (38-53); Hemoglobin 8.7 g/dL (13.2-16.3); Lymphocyte % 7.5 %; Mean Corpuscular Hemoglobin 29.4 pg (27-33); Mean Corpuscular Hgb Conc 32.8 g/dL (31-36); Mean Corpuscular Volume 89.9 fL (80-97); Mean Platelet Volume 8.4 fL (7.5-11.2); Platelet Count 538 10^3/uL (150-450); Red Blood Count 2.94 10^6/uL (4.06-5.63); Red Cell Distribution Width 15.7 % (12-17)
[2024-02-17 06:32] LABS: Calcium 9.3 mg/dL (8.6-10.3); Creatinine, Serum 1.66 mg/dL (0.67-1.17); Magnesium 2.1 mg/dL (1.9-2.7); Potassium 4.2 mmol/L (3.5-5.0); eGFR CKD-EPI 47.2 (>60)
[2024-02-17] MEDS: Furosemide 40 mg/4 ml IV VIAL IV SLOW PU SCH (16:50)
[2024-02-17] MEDS: fentaNYL 250 mcg/5 ml 50 MCG/ML 5 ml VIAL (250 MCG) ONE (20:00)
[2024-02-18 06:50] LABS: Hematocrit 26.5 % (38-53); Hemoglobin 8.9 g/dL (13.2-16.3); Mean Corpuscular Hgb Conc 33.5 g/dL (31-36); Mean Corpuscular Volume 89.7 fL (80-97); Mean Platelet Volume 8.9 fL (7.5-11.2); Platelet Count 512 10^3/uL (150-450); Red Blood Count 2.96 10^6/uL (4.06-5.63); Red Cell Distribution Width 15.4 % (12-17); White Blood Count 11.7 10^3/uL (3.6-10.2)
[2024-02-18 07:09] LABS: Calcium 9.2 mg/dL (8.6-10.3); Creatinine, Serum 1.87 mg/dL (0.67-1.17); Potassium 4.1 mmol/L (3.5-5.0); eGFR CKD-EPI 40.9 (>60)
[2024-02-18 14:22] VITALS: BP 106/79
== END 2024-02-18 16:50 | disposition home or self-care (01) | DRG 291 ==
LOC: ED 02:47 → EDHOLD 03:37 → SUATTDRO 03:37 → ICU 03:51 → MED 02-15 20:52
PROVIDERS: ADMIT Internal Medicine Pulmonary Disease; ATTEND Hospitalist

== ENCOUNTER 2024-04-12 00:19 | Observation (INO) ==
[2024-04-12 01:27] LABS: ABS Basophils 0.1 10^3/uL (0.0-0.1); ABS Eosinophils 0.4 10^3/uL (0.0-0.5); ABS Lymphocytes 0.7 10^3/uL (1.0-4.8); ABS Monocytes 0.9 10^3/uL (0.0-1.1); ABS Neutrophils 10.5 10^3/uL (1.5-7.6); Eosinophil % 3.1 %; Hematocrit 20.8 % (38-53); Lymphocyte % 5.4 %; Mean Corpuscular Hemoglobin 27.7 pg (27-33); Mean Corpuscular Hgb Conc 33.6 g/dL (31-36); Mean Corpuscular Volume 82.6 fL (80-97); Platelet Count 322 10^3/uL (150-450); Red Blood Count 2.52 10^6/uL (4.06-5.63); Red Cell Distribution Width 17.2 % (12-17); White Blood Count 12.7 10^3/uL (3.6-10.2)
[2024-04-12 01:32] LABS: INR 1.1 (0.85-1.14)
[2024-04-12 01:58] LABS: Albumin 3.6 g/dL (3.5-5.7); Albumin/Globulin Ratio 1.7 (1-3); Calcium 8.7 mg/dL (8.6-10.3); Creatinine, Serum 1.71 mg/dL (0.67-1.17); Globulin 2.1 g/dL (2-4); Total Bilirubin 0.3 mg/dL (0.2-1.0); Total Protein 5.7 g/dL (6.4-8.9); eGFR CKD-EPI 45.5 (>60)
[2024-04-12] MEDS: Iodixanol 320 (CONTRAST) 100 ML SDV IV ONE (02:55)
[2024-04-12 03:33] LABS: High Sensitivity Troponin 1 Hr 439 pg/mL (<20)
[2024-04-12] MEDS: oxyCODONE SR 10 mg TAB PO ONE (05:46)
[2024-04-12] MEDS: Furosemide 40 mg/4 ml IV VIAL IV SLOW PU ONE ×2 (05:47→16:51)
[2024-04-12] MEDS ORDERED: Enoxaparin 40 MG/0.4 ML SYR SUBCUT SCH (06:00)
[2024-04-12 09:43] LABS: Ferritin 40.8 ng/mL (24-336)
[2024-04-12] MEDS: oxyCODONE SR 10 mg TAB PO PRN (15:36)
[2024-04-13 06:06] LABS: % Iron Saturation 12 % (15-55); .Transferrin 206 mg/dL (203-362); Iron 35 ug/dL (50-212); Total Iron Binding Capacity 288 mcg/dL (250-450); Unsaturated Iron Binding 253 ug/dL
[2024-04-13 11:22] LABS: ABS Basophils 0.1 10^3/uL (0.0-0.1); ABS Eosinophils 0.3 10^3/uL (0.0-0.5); ABS Lymphocytes 0.5 10^3/uL (1.0-4.8); ABS Neutrophils 9.7 10^3/uL (1.5-7.6); Eosinophil % 2.5 %; Hematocrit 24.8 % (38-53); Hemoglobin 8.3 g/dL (13.2-16.3); Lymphocyte % 4.5 %; Mean Corpuscular Hemoglobin 27.5 pg (27-33); Mean Corpuscular Hgb Conc 33.5 g/dL (31-36); Mean Corpuscular Volume 82.2 fL (80-97); Mean Platelet Volume 9.2 fL (7.5-11.2); Platelet Count 315 10^3/uL (150-450); Red Blood Count 3.02 10^6/uL (4.06-5.63); Red Cell Distribution Width 16.2 % (12-17); White Blood Count 11.6 10^3/uL (3.6-10.2)
[2024-04-13 11:45] LABS: Calcium 8.8 mg/dL (8.6-10.3); Creatinine, Serum 1.63 mg/dL (0.67-1.17); Magnesium 1.8 mg/dL (1.9-2.7); Potassium 4.1 mmol/L (3.5-5.0); eGFR CKD-EPI 48.2 (>60)
[2024-04-13 14:09] VITALS: BP 106/75
== END 2024-04-13 16:10 | disposition home or self-care (01) ==
LOC: ED 00:19 → EDHOLD 00:19 → MEDTELE 08:15
PROVIDERS: ADMIT Student in an Organized Health Care Education/Training Program; ATTEND Student in an Organized Health Care Education/Training Program